=== PATIENT | female | born 2000 ===

== ENCOUNTER 2023-01-27 09:43 | Outpatient (CLI) | payer OTHER | END 2023-01-27 10:55 | disposition home or self-care (01) | LOC: PRENATAL 09:43 | PROVIDERS: ATTEND Obstetrics & Gynecology Maternal & Fetal Medicine | DX: O36.80X0 Pregnancy with inconclusive fetal viability, not applicable or unspecified (principal); Z3A.12 12 weeks gestation of pregnancy ==

== ENCOUNTER 2023-03-25 12:37 | Outpatient (CLI) | payer OTHER | END 2023-03-25 17:12 | disposition home or self-care (01) | LOC: PRENATAL 12:37 | PROVIDERS: ATTEND Obstetrics & Gynecology Maternal & Fetal Medicine | DX: O35.9XX0 Maternal care for (suspected) fetal abnormality and damage, unspecified, not applicable or unspecified (principal); O44.00 Complete placenta previa NOS or without hemorrhage, unspecified trimester; O99.210 Obesity complicating pregnancy, unspecified trimester; Z3A.20 20 weeks gestation of pregnancy ==

== ENCOUNTER 2023-05-21 14:10 | Outpatient (CLI) | payer OTHER | END 2023-05-21 14:11 | disposition home or self-care (01) | LOC: PRENATAL 14:10 | PROVIDERS: ATTEND Obstetrics & Gynecology Maternal & Fetal Medicine | DX: O26.849 Uterine size-date discrepancy, unspecified trimester (principal); O44.00 Complete placenta previa NOS or without hemorrhage, unspecified trimester; O99.210 Obesity complicating pregnancy, unspecified trimester; Z3A.28 28 weeks gestation of pregnancy ==

== ENCOUNTER 2023-06-30 14:13 | Outpatient (CLI) | payer OTHER | END 2023-06-30 14:14 | disposition home or self-care (01) | LOC: PRENATAL 14:13 | PROVIDERS: ATTEND Obstetrics & Gynecology Maternal & Fetal Medicine | DX: O26.849 Uterine size-date discrepancy, unspecified trimester (principal); O36.8199 Decreased fetal movements, unspecified trimester, other fetus; O99.210 Obesity complicating pregnancy, unspecified trimester; Z3A.34 34 weeks gestation of pregnancy ==

== ENCOUNTER 2023-07-17 12:59 | Outpatient (CLI) | payer OTHER ==
[2023-07-17 13:27] LABS: HEMATOCRIT 35.4 % (36.0-45.00); HEMOGLOBIN 11.9 g/dL (12.0-15.00); MEAN CELL VOLUME 86.1 fL (80.00-100.00); MEAN CORPUSCULAR HGB CONC 33.6 g/dl (32.0-36.0); PLATELET COUNT 326 K/uL (150-450); RED BLOOD COUNT 4.11 M/uL (4.00-6.00); RED CELL DISTRIBUTION WIDTH 14.3 % (11.5-14.5)
[2023-07-17 13:28] LABS: PH,URINE 6.5 (5.0-8.0); URINE APPEARANCE Clear; URINE BILIRRUBIN Negative (NEGATIVE); URINE BLOOD Negative; URINE COLOR Yellow; URINE GLUCOSE Negative (NEGATIVE); URINE LEUKOCYTE Negative; URINE NITRATE Negative; URINE PROTEIN Negative (NEGATIVE); URINE UROBILINOGEN 0.2 E.U./dl
[2023-07-17 13:31] LABS: URINE BACTERIA 457.2 uL (0.0-1933); URINE EPITHELIAL CELLS 61.3 uL (0.0-38.8); URINE RBC 2.7 uL (0.0-20.8); URINE WBC 18.3 uL (0.0-23.2)
[2023-07-17 13:45] LABS: INR 0.94; PARTIAL THROMBOPLASTIN TIME 28.5 SECONDS (22.0-34.0); PROTHROMBIN TIME 9.9 SECONDS (9.0-11.5)
[2023-07-17 14:12] LABS: ALBUMIN 2.4 gm/dL (3.4-5.0); BILIRUBIN TOTAL 0.45 mg/dL (0.3-1.2); CREATININE SERUM 0.64 mg/dL (0.55-1.02); GLOBULINA 3.7 G/DL (2.4-3.5); POTASSIUM 4.17 mEq/L (3.5-5.1); TOTAL PROTEIN 6.1 gm/dL (6.4-8.2)
== END 2023-07-17 19:58 | disposition home or self-care (01) ==
LOC: OBS/DEL 12:59
PROVIDERS: Obstetrics & Gynecology; ATTEND Student in an Organized Health Care Education/Training Program
DX: O47.03 False labor before 37 completed weeks of gestation, third trimester (principal); Z3A.36 36 weeks gestation of pregnancy

== ENCOUNTER 2023-07-20 14:05 | Inpatient (IN) | payer OTHER ==
[~2023-07-20] VITALS: Ht 170.2 cm; Wt 3.2 kg
[2023-07-20] MEDS ORDERED: PRENATABS RX T1 EACH PO (14:35)
[2023-07-20 15:17] LABS: HEMATOCRIT 35.3 % (36.0-45.00); HEMOGLOBIN 11.9 g/dL (12.0-15.00); MEAN CELL VOLUME 86.3 fL (80.00-100.00); MEAN CORPUSCULAR HEMOGLOBIN 29.2 pg (27.00-32.0); MEAN CORPUSCULAR HGB CONC 33.8 g/dl (32.0-36.0); PLATELET COUNT 331 K/uL (150-450); RED BLOOD COUNT 4.08 M/uL (4.00-6.00); RED CELL DISTRIBUTION WIDTH 14.4 % (11.5-14.5)
[2023-07-20 15:18] LABS: PH,URINE 6.5 (5.0-8.0); URINE APPEARANCE Clear; URINE BILIRRUBIN Negative (NEGATIVE); URINE BLOOD Negative; URINE COLOR Yellow; URINE LEUKOCYTE Trace; URINE NITRATE Negative; URINE PROTEIN Negative (NEGATIVE); URINE UROBILINOGEN 0.2 E.U./dl
[2023-07-20 15:19] LABS: URINE BACTERIA 28.9 uL (0.0-1933); URINE EPITHELIAL CELLS 23.3 uL (0.0-38.8); URINE RBC 2.2 uL (0.0-20.8); URINE WBC 5.2 uL (0.0-23.2)
[2023-07-20 15:31] LABS: URINE GLUCOSE 250 MG/DL (NEGATIVE)
[2023-07-20 15:37] LABS: INR 0.95; PARTIAL THROMBOPLASTIN TIME 27.9 SECONDS (22.0-34.0)
[2023-07-20 15:42] LABS: ALBUMIN 2.6 gm/dL (3.4-5.0); BILIRUBIN TOTAL 0.4 mg/dL (0.3-1.2); CALCIUM 9.3 mg/dL (8.5-10.1); CREATININE SERUM 0.64 mg/dL (0.55-1.02); GLOBULINA 3.8 G/DL (2.4-3.5); POTASSIUM 4.29 mEq/L (3.5-5.1); TOTAL PROTEIN 6.4 gm/dL (6.4-8.2)
[2023-07-21 10:56] LABS: HEMATOCRIT 30.3 % (36.0-45.00); HEMOGLOBIN 10.4 g/dL (12.0-15.00); MEAN CELL VOLUME 84.6 fL (80.00-100.00); MEAN CORPUSCULAR HGB CONC 34.3 g/dl (32.0-36.0); PLATELET COUNT 278 K/uL (150-450); RED BLOOD COUNT 3.58 M/uL (4.00-6.00); RED CELL DISTRIBUTION WIDTH 14.7 % (11.5-14.5)
== END 2023-07-23 12:14 | disposition home or self-care (01) | DRG 788 ==
LOC: LDR 14:05 → OB/GYN 23:55
PROVIDERS: Obstetrics & Gynecology; ADMIT Student in an Organized Health Care Education/Training Program; ATTEND Student in an Organized Health Care Education/Training Program
PROC: 4A1HXCZ Monitoring of Products of Conception, Cardiac Rate, External Approach (ICD-10-PCS; 2023-07-20)
PROC: 10D00Z1 Extraction of Products of Conception, Low, Open Approach (ICD-10-PCS; principal; 2023-07-20 22:00)
DX: O62.1 Secondary uterine inertia (principal); O99.824 Streptococcus B carrier state complicating childbirth; Z3A.37 37 weeks gestation of pregnancy; Z37.0 Single live birth; Z20.822 Contact with and (suspected) exposure to COVID-19

== ENCOUNTER 2024-11-07 15:54 | Outpatient (CLI) | payer OTHER ==
[~2024-11-07 15:54] MED LIST: PRENATABS RX T1 EACH PO
== END 2024-11-07 15:59 | disposition home or self-care (01) ==
LOC: PRENATAL 15:54
PROVIDERS: ATTEND Obstetrics & Gynecology Maternal & Fetal Medicine
DX: O36.80X0 Pregnancy with inconclusive fetal viability, not applicable or unspecified (principal); Z36.82 Encounter for antenatal screening for nuchal translucency; Z14.8 Genetic carrier of other disease; O99.210 Obesity complicating pregnancy, unspecified trimester; Z3A.12 12 weeks gestation of pregnancy

== ENCOUNTER → 2025-01-02 12:21 | Outpatient (CLI) | payer OTHER | END | disposition home or self-care (01) | LOC: PRENATAL 12:21 | PROVIDERS: ATTEND Obstetrics & Gynecology Maternal & Fetal Medicine | DX: O44.00 Complete placenta previa NOS or without hemorrhage, unspecified trimester (principal); O34.219 Maternal care for unspecified type scar from previous cesarean delivery; O99.210 Obesity complicating pregnancy, unspecified trimester; Z3A.20 20 weeks gestation of pregnancy ==

== ENCOUNTER 2025-04-24 16:50 | Outpatient (CLI) | payer OTHER ==
[~2025-04-24] VITALS: Ht 170.2 cm; Wt 131.5 kg
[2025-04-24 16:34] VITALS: BP 117/76
[2025-04-24] MEDS ORDERED: RINGERS SOLUTION,LACTATED 1,000 ML IV SCH (17:15)
[2025-04-24 18:05] LABS: URINE APPEARANCE Clear; URINE BILIRRUBIN Negative (NEGATIVE); URINE BLOOD Negative; URINE COLOR Dark Yellow; URINE KETONE Trace (NEGATIVE); URINE LEUKOCYTE Small; URINE NITRATE Negative; URINE PROTEIN 30 (NEGATIVE); URINE UROBILINOGEN 1.0 E.U./dl
[2025-04-24 18:09] LABS: URINE BACTERIA 2617.2 uL (0.0-1933); URINE EPITHELIAL CELLS 84.9 uL (0.0-38.8); URINE RBC 11.4 uL (0.0-20.8)
[2025-04-24 18:10] LABS: BASO % 0.3 % (0.1-1.2); EOS # 0.10 (0.04-0.54); EOS % 0.8 % (0.7-7.0); LYMPH # 1.89 (1.18-3.74); LYMPH % 14.7 % (19.3-53.1); MEAN PLATELET VOLUME 9.70 fl (9.4-12.4); MONO # 1.05 (0.24-0.82); MONO % 8.2 % (4.7-12.5); NEUT # 9.68 (1.56-6.13); NEUT % 75.5 % (34.0-71.1); RED CELL DISTRIBUTION WIDTH 13.5 % (11.6-14.4)
[2025-04-24 18:19] LABS: URINE CAST 0.43 uL (0.0-1.40); URINE GLUCOSE 250 MG/DL (NEGATIVE)
[2025-04-24 18:25] LABS: URINE MUCUS MODERATE
[2025-04-24 18:26] LABS: TYPE CELLS SQUAMOUS; URINE WBC 117.2 uL (0.0-23.2)
[2025-04-24 18:27] LABS: URINE CRYSTALS FEW /HPF; URINE YEAST FEW /hpf
[2025-04-24 18:48] LABS: INR 0.95
[2025-04-24 18:54] LABS: ALT/SGPT 10.0 U/L (12-78); AST/SGOT 8.0 U/L (15-37); BILIRUBIN TOTAL 0.32 mg/dL (0.3-1.2); BUN CREA RATIO 11.0 (7.0-25.0); CREATININE SERUM 0.65 mg/dL (0.55-1.02); GFR 111.06; GLOBULINA 3.8 G/DL (2.4-3.5); GLUCOSE FASTING 84.0 mg/dL (65-100); OSMOLALITY SERUM 282.0 MOSM/KG (275-295)
[2025-04-24 20:00] VITALS: BP 102/67
[2025-04-24] MEDS ORDERED: CEFAZOLIN SODIUM 1,000 MG VIAL IV SCH (20:00)
[2025-04-24 23:12] VITALS: BP 106/70
[2025-04-25 03:24] VITALS: BP 101/68
[2025-04-25 06:11] VITALS: BP 94/65; O2SAT 98
[2025-04-25 10:29] VITALS: BP 94/65
== END 2025-04-25 10:31 | disposition home or self-care (01) ==
LOC: OBS/DEL 16:50
PROVIDERS: Specialist; ATTEND Student in an Organized Health Care Education/Training Program
DX: O26.893 Other specified pregnancy related conditions, third trimester (principal); R10.2 Pelvic and perineal pain

== ENCOUNTER 2025-04-26 07:56 | Inpatient (IN) | payer OTHER ==
[~2025-04-26] VITALS: Ht 170.2 cm; Wt 3.2 kg
[2025-04-26 07:21] VITALS: BP 98/75
[2025-04-26] MEDS ORDERED: RINGERS SOLUTION,LACTATED 1,000 ML IV SCH (08:30)
[2025-04-26] MEDS ORDERED: CEFAZOLIN SODIUM 1,000 MG VIAL IV SCH (08:30)
[2025-04-26 08:48] LABS: BASO % 0.2 % (0.1-1.2); EOS # 0.11 (0.04-0.54); EOS % 0.9 % (0.7-7.0); LYMPH # 1.85 (1.18-3.74); LYMPH % 14.8 % (19.3-53.1); MEAN PLATELET VOLUME 9.50 fl (9.4-12.4); MONO # 0.84 (0.24-0.82); MONO % 6.7 % (4.7-12.5); NEUT # 9.64 (1.56-6.13); NEUT % 77.0 % (34.0-71.1); RED CELL DISTRIBUTION WIDTH 13.5 % (11.6-14.4)
[2025-04-26 08:59] LABS: URINE APPEARANCE Clear; URINE BILIRRUBIN Negative (NEGATIVE); URINE COLOR Yellow; URINE GLUCOSE Negative (NEGATIVE); URINE KETONE Trace (NEGATIVE); URINE LEUKOCYTE Trace; URINE NITRATE Negative; URINE PROTEIN Negative (NEGATIVE); URINE UROBILINOGEN 0.2 E.U./dl
[2025-04-26 09:06] LABS: URINE BACTERIA 26.3 uL (0.0-1933); URINE EPITHELIAL CELLS 55.3 uL (0.0-38.8); URINE RBC 73.1 uL (0.0-20.8); URINE WBC 74.4 uL (0.0-23.2)
[2025-04-26 09:13] LABS: URINE BLOOD TRACES; URINE CAST 0.14 uL (0.0-1.40)
[2025-04-26 09:36] LABS: INR 0.98
[2025-04-26 09:55] LABS: ALT/SGPT 8.0 U/L (12-78); AST/SGOT 8.0 U/L (15-37); BILIRUBIN TOTAL 0.33 mg/dL (0.3-1.2); BUN CREA RATIO 10.0 (7.0-25.0); CREATININE SERUM 0.51 mg/dL (0.55-1.02); GFR 146.93; GLOBULINA 3.6 G/DL (2.4-3.5); GLUCOSE FASTING 82.0 mg/dL (65-100); OSMOLALITY SERUM 283.0 MOSM/KG (275-295)
[2025-04-26] MEDS ORDERED: AMPICILLIN SODIUM 2,000 MG VIAL ONE (10:07)
[2025-04-26] MEDS ORDERED: AMPICILLIN SODIUM 2,000 MG VIAL IV STA (10:22)
[2025-04-26 11:40] VITALS: BP 133/70
[2025-04-26] MEDS ORDERED: OXYTOCIN 10 UNITS/ML VIAL ONE ×2 (12:00→17:49)
[2025-04-26] MEDS ORDERED: ERYTHROMYCIN BASE OPHT 1GM EACH TUBE OP ONE ×2 (12:01→16:45)
[2025-04-26] MEDS ORDERED: MORPHINE SULFATE 4 MG/ML CARTRIDGE IV PRN (14:30)
[2025-04-26] MEDS ORDERED: ACETAMINOPHEN 325 MG TABLET PO PRN (14:30)
[2025-04-26] MEDS ORDERED: PROMETHAZINE HCL 25 MG/ML AMPUL IM PRN (14:45)
[2025-04-26] MEDS ORDERED: MORPHINE SULFATE 4 MG/ML VIAL IV ONE (15:50)
[2025-04-26] MEDS ORDERED: OXYTOCIN 1,000 ML IV SCH (16:45)
[2025-04-26] MEDS ORDERED: NALOXONE HCL 0.4 MG/ML AMPUL IV PRN (16:45)
[2025-04-26] MEDS ORDERED: CHLORHEXIDINE GLUCONATE 120 ML BOTTLE TP NR (16:45)
[2025-04-26 18:23] VITALS: BP 133/83
[2025-04-27] VITALS: BP 105/64
[2025-04-27] MEDS ORDERED: OxyCODONE HCL 5 MG TABLET (ROXICODONE) PO PRN (08:00)
[2025-04-27 08:49] VITALS: BP 106/72
[2025-04-27 08:54] LABS: BASO % 0.3 % (0.1-1.2); EOS # 0.08 (0.04-0.54); EOS % 0.7 % (0.7-7.0); LYMPH # 1.64 (1.18-3.74); LYMPH % 14.3 % (19.3-53.1); MEAN PLATELET VOLUME 9.80 fl (9.4-12.4); MONO # 0.97 (0.24-0.82); MONO % 8.4 % (4.7-12.5); NEUT # 8.70 (1.56-6.13); NEUT % 75.9 % (34.0-71.1); RED CELL DISTRIBUTION WIDTH 13.8 % (11.6-14.4)
[2025-04-27] MEDS ORDERED: SIMETHICONE 125 MG CAPSULE PO SCH (09:00)
[2025-04-27] MEDS ORDERED: DOCUSATE SODIUM 100MG CAP PO SCH (09:00)
[2025-04-27] MEDS ORDERED: PNV,CALCIUM 72/IRON/FOLIC ACID 1 TAB TABLET PO SCH (09:00)
[2025-04-27 16:47] VITALS: BP 102/67
[2025-04-28] VITALS: BP 100/61
[2025-04-28 08:00] VITALS: BP 95/63
[2025-04-28] MEDS ORDERED: IBU800 MG PO (10:54)
[2025-04-28] MEDS ORDERED: COLACE100 MG PO (10:54)
== END 2025-04-28 13:10 | disposition home or self-care (01) | DRG 786 ==
LOC: O/R 07:56 → LDR 07:56 → O/R 13:04 → OB/GYN 16:44
PROVIDERS: Obstetrics & Gynecology; Specialist; ADMIT Student in an Organized Health Care Education/Training Program; ATTEND Student in an Organized Health Care Education/Training Program
PROC: 4A1HXCZ Monitoring of Products of Conception, Cardiac Rate, External Approach (ICD-10-PCS; 2025-04-26)
PROC: 10D00Z1 Extraction of Products of Conception, Low, Open Approach (ICD-10-PCS; principal; 2025-04-26 13:00)
DX: O34.211 Maternal care for low transverse scar from previous cesarean delivery (principal); O60.14X0 Preterm labor third trimester with preterm delivery third trimester, not applicable or unspecified; O99.824 Streptococcus B carrier state complicating childbirth; Z3A.36 36 weeks gestation of pregnancy; Z37.0 Single live birth